=== PATIENT | male | born 1945 | race African-American/Black ===

== ENCOUNTER 2019-01-05 13:58 | Inpatient (IN) | payer MEDICARE, MEDICAID ==
[~2019-01-05] VITALS: Ht 182.9 cm; Wt 68.0 kg
[2019-01-05] VITALS (25 sets, daily range): BP systolic 103–136; BP diastolic 64–90
[~2019-01-05 13:58] MED LIST: ETOMIDATE 2MG/ML 10ML VIAL IV ONE; SODIUM CHLORIDE 0.9% 10ML VIAL ONE; VECURONIUM BROMIDE 10 MG/VIAL IV ONE
[2019-01-05] MEDS ORDERED: VECURONIUM BROMIDE 10 MG/VIAL IV ONE (14:15)
[2019-01-05] MEDS ORDERED: LEVETIRACETAM 500MG PREMIX 100 ML IV ONE (14:15)
[2019-01-05] MEDS ORDERED: PROPOFOL 10MG/ML 100ML 100 ML IV ONE (14:15)
[2019-01-05] MEDS ORDERED: DEXAMETHASONE 10 MG/ML VIAL IV ONE (14:15)
[2019-01-05] MEDS ORDERED: ETOMIDATE 2MG/ML 10ML VIAL IV ONE (14:15)
[2019-01-05 14:32] LABS: BASOPHILS % 0.3 % (0.0-2.0); EOSINOPHILS % 0.1 % (0.0-5.0); HEMATOCRIT. 39.4 % (42.0-52.0); HEMOGLOBIN. 12.9 g/dL (14.0-18.0); LYMPHOCYTES % 14.7 % (20.0-50.0); MEAN CORPUSCULAR HEMOGLOBIN 31.4 pg (28.0-32.0); MEAN CORPUSCULAR VOLUME 96.2 fL (80.0-94.0); MEAN PLATELET VOLUME 7.4 fl (7.4-10.4); MONOCYTES % 5.9 % (2.0-8.0); PLATELET 96 x1000/uL (130-400); RED BLOOD CELL COUNT 4.09 mill/uL (4.7-6.1); RED CELL DISTRIBUTION WIDTH 14.3 % (11.6-14.6)
[2019-01-05 14:41] LABS: INR 1.1; PROTHROMBIN TIME 10.9 sec (9.1-11.1)
[2019-01-05 14:42] LABS: CHLORIDE 108 mEq/L (98-107)
[2019-01-05 14:48] LABS: ETHANOL BLOOD < 10 mg/dL
[2019-01-05 14:50] LABS: LDL CHOLESTEROL 84 mg/dL (5-100)
[2019-01-05 14:54] LABS: CREATINE KINASE 107 IU/L (39-308)
[2019-01-05 15:16] LABS: BG BASE EXCESS -10.6 mmol/L (-2.0-2.0); BG CARBOXYHEMOGLOBIN 0.7 % (0.5-1.5); BG DEOXYHEMOGLOBIN 1.6 % (0.0-5.0); BG HCO3 ACT 15.6 mmol/L (22.0-26.0); BG METHEMOGLOBIN 0.2 % (0.0-1.5); BG OXYGEN SATURATION 98.4 % (92.0-98.5); BG OXYHEMOGLOBIN 97.5 % (94.0-97.0); BG PCO2 35.5 mmHg (35.0-45.0); BG PO2 144.6 mmHg (75.0-100.0); BG SAMPLE SITE LEFT RADIAL; BG TIDAL VOLUME(mL) 500 mL; BG TOTAL HEMOGLOBIN 13.3 g/dL (12.0-18.0); BG VENT MODE VENT - A/C; BG VENT RATE 14 set
[2019-01-05] MEDS ORDERED: INSLIS SUBCUT (15:27)
[2019-01-05] MEDS ORDERED: DEX4 MT (15:27)
[2019-01-05] MEDS ORDERED: HYDR-4001 MT (15:27)
[2019-01-05] MEDS ORDERED: LEVE500T19 MT (15:27)
[2019-01-05] MEDS ORDERED: ONDA4TAB5 PO (15:27)
[2019-01-05] MEDS ORDERED: FLUT1AER IH (15:27)
[2019-01-05] MEDS ORDERED: IPRA3AMP9 HHN (15:27)
[2019-01-05] MEDS ORDERED: FENO145T36 MT (15:27)
[2019-01-05] MEDS ORDERED: GABA400C MT (15:27)
[2019-01-05] MEDS ORDERED: PROT40 MT (15:27)
[2019-01-05] MEDS ORDERED: METF-414 PO (15:27)
[2019-01-05] MEDS ORDERED: AMLO10TA4 MT (15:27)
[2019-01-05] MEDS ORDERED: ENAL10TA MT (15:27)
[2019-01-05] MEDS ORDERED: DOCU250C14 MT (15:27)
[2019-01-05] MEDS ORDERED: INSU100I24 SQ (15:27)
[2019-01-05] MEDS ORDERED: POLY17PO3 MT (15:27)
[2019-01-05] MEDS ORDERED: TERA2CAP4 MT (15:27)
[2019-01-05 15:46] LABS: CLARITY URINE CLOUDY (CLEAR); COLOR URINE DARK YELLOW (YELLOW); KETONES URINE TRACE (NEGATIVE); LEUKOCYTE ESTERASE URINE NEGATIVE (NEGATIVE); NITRITE URINE NEGATIVE (NEGATIVE); OCCULT BLOOD URINE TRACE (NEGATIVE); PROTEIN URINE 1+ (NEGATIVE); SPECIFIC GRAVITY URINE 1.031 (1.005-1.030)
[2019-01-05 16:31] LABS: *BARBITURATES SCREEN URINE NEGATIVE (NEGATIVE)
[2019-01-05 16:32] LABS: *BENZODIAZEPINES SCREEN URINE PRESUMTIVE POSITIVE (NEGATIVE); *COCAINE SCREEN URINE NEGATIVE (NEGATIVE); METHADONE URINE SCREEN NEGATIVE (NEGATIVE); OPIATES URINE SCREEN NEGATIVE (NEGATIVE)
[2019-01-05 16:33] LABS: *AMPHETAMINES SCREEN URINE NEGATIVE (NEGATIVE); CANNABINOID URINE SCREEN NEGATIVE (NEGATIVE); PHENCYCLIDINE URINE SCREEN NEGATIVE (NEGATIVE)
[2019-01-05] MEDS ORDERED: IPRATROPIUM/ALBUTEROL 0.5-3(2.5)MG/3ML NEB HHN PRN (17:15)
[2019-01-05] MEDS ORDERED: DEXTROSE 50% WATER 50ML SYRINGE IV PRN (17:30)
[2019-01-05] MEDS ORDERED: INSULIN LISPRO 100 UNITS/ML SUBCUT SCH (17:40)
[2019-01-05] MEDS: PROPOFOL 10MG/ML 100ML 100 ML IV PRN (18:10)
[2019-01-05] MEDS ORDERED: SODIUM BICARBONATE 8.4% 1 MEQ/ML 50ML SYR IV NR (18:30)
[2019-01-05] MEDS ORDERED: CLONIDINE 0.1MG TABLET PO PRN (19:00)
[2019-01-05] MEDS ORDERED: ACETAMINOPHEN 650MG SUPP PR PRN (19:00)
[2019-01-05] MEDS ORDERED: VANCOMYCIN 1500MG in DEXTROSE 5% WATER 250ML IV NR (20:00)
[2019-01-05] MEDS ORDERED: LEVETIRACETAM 500 MG in SODIUM CHLORIDE 0.9% 100 ML IV SCH (20:01)
[2019-01-05] MEDS: IPRATROPIUM/ALBUTEROL 0.5-3(2.5)MG/3ML NEB HHN SCH (20:14)
[2019-01-05] MEDS: PANTOPRAZOLE SODIUM 40 MG/VIAL IV SCH (20:27)
[2019-01-05 20:39] LABS: CLARITY URINE CLOUDY (CLEAR); COLOR URINE DARK YELLOW (YELLOW); KETONES URINE 1+ (NEGATIVE); LEUKOCYTE ESTERASE URINE NEGATIVE (NEGATIVE); NITRITE URINE NEGATIVE (NEGATIVE); OCCULT BLOOD URINE 2+ (NEGATIVE); PROTEIN URINE 1+ (NEGATIVE); SPECIFIC GRAVITY URINE 1.034 (1.005-1.030)
[2019-01-05] MEDS ORDERED: BLOOD SUGAR DIAGNOSTIC STRIP TEST SCH (21:00)
[2019-01-05] MEDS: LEVETIRACETAM 1,000 MG in SODIUM CHLORIDE 0.9% 100 ML IV SCH (22:30)
[2019-01-05] MEDS: PIPERACILLIN/TAZ 3.375G PREMIX 50 ML IV SCH (22:30)
[2019-01-06] VITALS (95 sets, daily range): BP systolic 76–147; BP diastolic 49–95
[2019-01-06] MEDS: ACETYLCYSTEINE 100MG/ML 10% VIAL 4ML INH SCH ×3 (00:07→16:20)
[2019-01-06] MEDS: IPRATROPIUM/ALBUTEROL 0.5-3(2.5)MG/3ML NEB HHN SCH ×6 (00:07→20:44)
[2019-01-06 00:32] LABS: CREATINE KINASE 85 IU/L (39-308)
[2019-01-06] MEDS: BLOOD SUGAR DIAGNOSTIC STRIP TEST SCH ×4 (01:00→17:54)
[2019-01-06] MEDS: INSULIN LISPRO 100 UNITS/ML SUBCUT SCH ×4 (01:03→17:54)
[2019-01-06] MEDS: PROPOFOL 10MG/ML 100ML 100 ML IV PRN ×3 (01:53→17:03)
[2019-01-06] MEDS: DEXT 5%/0.45% NACL 1000ML 1,000 ML IV SCH ×2 (02:36→17:58)
[2019-01-06] MEDS: PIPERACILLIN/TAZ 3.375G PREMIX 50 ML IV SCH ×3 (03:41→17:53)
[2019-01-06 05:58] LABS: CHLORIDE 107 mEq/L (98-107)
[2019-01-06 06:01] LABS: BASOPHILS % 0.5 % (0.0-2.0); HEMATOCRIT. 39.4 % (42.0-52.0); HEMOGLOBIN. 12.6 g/dL (14.0-18.0); LYMPHOCYTES % 31.3 % (20.0-50.0); MEAN CORPUSCULAR HEMOGLOBIN 31.2 pg (28.0-32.0); MEAN CORPUSCULAR VOLUME 97.8 fL (80.0-94.0); MEAN PLATELET VOLUME 7.7 fl (7.4-10.4); MONOCYTES % 8.3 % (2.0-8.0); NEUTROPHILS % 59.9 % (40.0-76.0); PLATELET 94 x1000/uL (130-400); RED BLOOD CELL COUNT 4.03 mill/uL (4.7-6.1); RED CELL DISTRIBUTION WIDTH 14.8 % (11.6-14.6)
[2019-01-06 06:05] LABS: HDL CHOLESTEROL 46 mg/dL (40-59)
[2019-01-06 06:06] LABS: T4 FREE 1.13 ng/dL (0.76-1.46)
[2019-01-06 06:08] LABS: LDL CHOLESTEROL 88 mg/dL (5-100)
[2019-01-06 06:09] LABS: PHOSPHORUS 3.2 mg/dL (2.5-4.9)
[2019-01-06 06:10] LABS: CREATINE KINASE 100 IU/L (39-308)
[2019-01-06 09:25] LABS: BG BASE EXCESS -0.6 mmol/L (-2.0-2.0); BG CARBOXYHEMOGLOBIN 0.4 % (0.5-1.5); BG DEOXYHEMOGLOBIN 0.6 % (0.0-5.0); BG FRACTION INSPIRED OXYGEN 50; BG HCO3 ACT 21.8 mmol/L (22.0-26.0); BG METHEMOGLOBIN 0.3 % (0.0-1.5); BG OXYGEN SATURATION 99.4 % (92.0-98.5); BG OXYHEMOGLOBIN 98.7 % (94.0-97.0); BG PCO2 28.9 mmHg (35.0-45.0); BG PH 7.495 (7.350-7.450); BG PO2 237.2 mmHg (75.0-100.0); BG SAMPLE SITE RIGHT BRACHIAL; BG TIDAL VOLUME(mL) 500 mL; BG TOTAL HEMOGLOBIN 11.8 g/dL (12.0-18.0); BG VENT MODE VENT - A/C; BG VENT RATE 16 set
[2019-01-06] MEDS: PANTOPRAZOLE SODIUM 40 MG/VIAL IV SCH (09:30)
[2019-01-06] MEDS: LEVETIRACETAM 1,000 MG in SODIUM CHLORIDE 0.9% 100 ML IV SCH ×2 (09:30→20:59)
[2019-01-06] MEDS ORDERED: GADOBENATE DIMEGLUMINE 529 MG/ML 10ML IV ONE (10:16)
[2019-01-06] MEDS: VANCOMYCIN 1 G PREMIX 200 ML IV SCH ×2 (11:17→20:59)
[2019-01-06] MEDS: DEXAMETHASONE 2MG TABLET PO SCH ×2 (12:20→17:53)
[2019-01-06 15:59] LABS: CREATINE KINASE 58 IU/L (39-308)
[2019-01-06] MEDS: SODIUM CHLORIDE 3% FOR INH 4ML UD NEB INH SCH ×2 (16:21→20:44)
[2019-01-06] MEDS ORDERED: PIPERACILLIN/TAZ 3.375G PREMIX 50 ML IV SCH (16:45)
[2019-01-06] MEDS ORDERED: PROPOFOL 10MG/ML 100ML 100 ML IV PRN (18:02)
[2019-01-07] VITALS (77 sets, daily range): BP systolic 75–138; BP diastolic 36–79
[2019-01-07] MEDS: ACETYLCYSTEINE 100MG/ML 10% VIAL 4ML INH SCH ×3 (00:27→15:11)
[2019-01-07] MEDS: IPRATROPIUM/ALBUTEROL 0.5-3(2.5)MG/3ML NEB HHN SCH ×6 (00:27→20:38)
[2019-01-07] MEDS: DEXAMETHASONE 2MG TABLET PO SCH ×4 (01:11→18:33)
[2019-01-07] MEDS: INSULIN LISPRO 100 UNITS/ML SUBCUT SCH ×4 (01:12→18:00)
[2019-01-07] MEDS: PIPERACILLIN/TAZ 3.375G PREMIX 50 ML IV SCH ×4 (01:13→18:33)
[2019-01-07 05:35] LABS: BASOPHILS % 0.2 % (0.0-2.0); HEMATOCRIT. 30.1 % (42.0-52.0); HEMOGLOBIN. 10.1 g/dL (14.0-18.0); LYMPHOCYTES % 15.6 % (20.0-50.0); MEAN CORPUSCULAR HEMOGLOBIN 31.8 pg (28.0-32.0); MEAN CORPUSCULAR VOLUME 94.9 fL (80.0-94.0); MEAN PLATELET VOLUME 7.3 fl (7.4-10.4); MONOCYTES % 4.8 % (2.0-8.0); NEUTROPHILS % 79.4 % (40.0-76.0); PLATELET 91 x1000/uL (130-400); RED BLOOD CELL COUNT 3.17 mill/uL (4.7-6.1); RED CELL DISTRIBUTION WIDTH 14.6 % (11.6-14.6)
[2019-01-07 05:36] LABS: CHLORIDE 106 mEq/L (98-107)
[2019-01-07] MEDS: BLOOD SUGAR DIAGNOSTIC STRIP TEST SCH ×4 (08:00→18:33)
[2019-01-07] MEDS: PANTOPRAZOLE SODIUM 40 MG/VIAL IV SCH (08:17)
[2019-01-07 08:21] LABS: BG BASE EXCESS 2.5 mmol/L (-2.0-2.0); BG CARBOXYHEMOGLOBIN 0.3 % (0.5-1.5); BG DEOXYHEMOGLOBIN 1.1 % (0.0-5.0); BG HCO3 ACT 25.2 mmol/L (22.0-26.0); BG METHEMOGLOBIN 0.3 % (0.0-1.5); BG OXYGEN SATURATION 98.9 % (92.0-98.5); BG OXYHEMOGLOBIN 98.3 % (94.0-97.0); BG PCO2 32.2 mmHg (35.0-45.0); BG PH 7.512 (7.350-7.450); BG PO2 183.9 mmHg (75.0-100.0); BG SAMPLE SITE RIGHT BRACHIAL; BG TIDAL VOLUME(mL) 500 mL; BG TOTAL HEMOGLOBIN 10.2 g/dL (12.0-18.0); BG VENT MODE VENT - A/C; BG VENT RATE 14 set
[2019-01-07] MEDS: VANCOMYCIN 1 G PREMIX 200 ML IV SCH (09:00)
[2019-01-07] MEDS: LEVETIRACETAM 1,000 MG in SODIUM CHLORIDE 0.9% 100 ML IV SCH ×2 (10:00→20:55)
[2019-01-07] MEDS: DEXT 5%/0.45% NACL 1000ML 1,000 ML IV SCH (10:50)
[2019-01-07 12:11] LABS: BG BASE EXCESS 0.7 mmol/L (-2.0-2.0); BG CARBOXYHEMOGLOBIN 0.3 % (0.5-1.5); BG DEOXYHEMOGLOBIN 1.2 % (0.0-5.0); BG FRACTION INSPIRED OXYGEN 40; BG HCO3 ACT 22.6 mmol/L (22.0-26.0); BG METHEMOGLOBIN 0.3 % (0.0-1.5); BG OXYGEN SATURATION 98.8 % (92.0-98.5); BG OXYHEMOGLOBIN 98.2 % (94.0-97.0); BG PCO2 27.3 mmHg (35.0-45.0); BG PH 7.536 (7.350-7.450); BG PO2 171.1 mmHg (75.0-100.0); BG PRESSURE SUPPORT 8; BG SAMPLE SITE RIGHT BRACHIAL; BG TOTAL HEMOGLOBIN 10.3 g/dL (12.0-18.0); BG VENT MODE VENT - CPAP
[2019-01-07 12:34] LABS: HEMATOCRIT 28.3 % (42.0-52.0); HEMOGLOBIN 9.6 g/dL (14.0-18.0)
[2019-01-07] MEDS ORDERED: KCL 20MEQ/100ML PREMIX 100 ML IV SCH (13:00)
[2019-01-07] MEDS ORDERED: VANCOMYCIN 1250MG in DEXTROSE 5% WATER 250ML IV SCH (21:00)
== END 2019-01-08 00:05 | disposition short-term general hospital (02) | DRG 871 ==
LOC: ER 14:34 → EDBD 14:34 → MICUSO 16:08 → EDBEDREQTM 16:10 → EDBEDREQ 16:10 → EDBEDREQSVC 16:10 → ENRESERV 16:31
PROVIDERS: ADMIT Family Medicine Adult Medicine; ATTEND Family Medicine Adult Medicine
PROC: 5A1945Z Respiratory Ventilation, 24-96 Consecutive Hours (ICD-10-PCS; principal; 2019-01-05)
PROC: 0BH17EZ Insertion of Endotracheal Airway into Trachea, Via Natural or Artificial Opening (ICD-10-PCS; 2019-01-05)
PROC: 06HY33Z Insertion of Infusion Device into Lower Vein, Percutaneous Approach (ICD-10-PCS; 2019-01-05)
PROC: 4A00X4Z Measurement of Central Nervous Electrical Activity, External Approach (ICD-10-PCS; 2019-01-06)
DX: A41.9 Sepsis, unspecified organism (principal); J96.00 Acute respiratory failure, unspecified whether with hypoxia or hypercapnia; J18.8 Other pneumonia, unspecified organism; J44.0 Chronic obstructive pulmonary disease with (acute) lower respiratory infection; C34.90 Malignant neoplasm of unspecified part of unspecified bronchus or lung; E87.2 Acidosis; C79.31 Secondary malignant neoplasm of brain; E72.20 Disorder of urea cycle metabolism, unspecified; G81.91 Hemiplegia, unspecified affecting right dominant side; E11.9 Type 2 diabetes mellitus without complications; I10 Essential (primary) hypertension; G40.909 Epilepsy, unspecified, not intractable, without status epilepticus; N40.0 Benign prostatic hyperplasia without lower urinary tract symptoms; K21.9 Gastro-esophageal reflux disease without esophagitis; E78.5 Hyperlipidemia, unspecified; E87.6 Hypokalemia; I25.10 Atherosclerotic heart disease of native coronary artery without angina pectoris; Z78.1 Physical restraint status; Z79.4 Long term (current) use of insulin; Z79.899 Other long term (current) drug therapy; Z92.21 Personal history of antineoplastic chemotherapy
CPT/HCPCS: 31500; 36415; 36556; 36600; 70553; 71045; 80048; 80061; 80202; 80305; 80320; 82140; 82375; 82550; 82805; 82962; 83605; 83721; 83735; 83880; 84100; 84145; 84439; 84443; 84478; 84481; 84484; 85014; 85018; 85044; 87070; 93005; 93306; 93880; 93970; 94002; 94003; 94640; 96365; 96366; 96375; 99291; A6261; A9577; C9113; J1100; J1815; J1953; J2543; J2704; J3370; J3480; J3490; J7050; J7060; J7608; J7620; J8540; G0480